=== PATIENT | female | born 1955 | race Hispanic/Latino ===

== ENCOUNTER → 2017-09-07 | Outpatient (CLI) | payer OTHER | LOC: MAMMO 14:56 | PROVIDERS: ATTEND Internal Medicine | DX: Z12.31 Encounter for screening mammogram for malignant neoplasm of breast (principal) | CPT/HCPCS: 77067 ==

== ENCOUNTER 2018-05-12 17:33 | Emergency (ER) | payer OTHER ==
[~2018-05-12] VITALS: Ht 162.6 cm; Wt 72.6 kg
--- OUTSIDE RECORDS SUMMARY | 2018-05-12 17:36 | XMS REPORT ---
Author Author [facility] Address Unknown Phone Unavailable Care Team Providers Care Microelectronics Engineer Name Role Phone Srikanth YANEZ Unavailable Unavailable Problems This patient has no known problems. Allergies, Adverse Reactions, Alerts This patient has no known allergies or adverse reactions. Medications This patient has no known medications. Results Test Description Test Time Test Comments Text Results Atomic Results Result Comments MAMMOGRAPHY DIGITAL SCR BILAT 2017-09-07 15:36:00 [place] [address] Patient Name: SUSAN GODWIN MR #: [id number] : 1955 Age/Sex: 61/F Req #: [id number] [facility] Physician: Ordered by: SIDDHARTHA YANEZ MD Report #: [id number] Location: MAMMO Room/Bed: Procedure: [id number] MG/MAMMOGRAPHY DIGITAL SCR BILAT Exam Date: 09/07/17 Exam Time: 1520 REPORT STATUS: Signed #[id number] - [id number] #BILATERAL DIGITAL SCREENING MAMMOGRAM WITH CAD: 09/07/2017 CLINICAL: Routine screening. Comparison is made to exam dated: 06/21/2016 mammogram - [facility]. Current study contains 4 films. There are scattered fibroglandular elements in both breasts. Current study was also evaluated with a Computer Aided Detection (CAD) system. There are benign vascular calcifications and calcifications in both breasts. There is a mole marker on the right breast. No significant masses, calcifications, or other findings are seen in either breast. There has been no significant interval change. IMPRESSION: BENIGN There is no mammographic evidence of malignancy. A 1 year screening mammogram is recommended. The patient will be notified by dalia shearer of the results. Eun arce/fabby:09/19/2017 09:01:49 Biofuels Processing Technician: Jacinta BARRAGAN(R)(Srikanth), [facility] letter sent: Compared to Prior B9 Mammogram BI-RADS: 2 Benign Dictated By: EUN HOLLOWAY DO 0 Transcribed By: FABBY on 09/19/17900 COPY TO: SIDDHARTHA YANEZ MD
[2018-05-12] MEDS ORDERED: CLONIDINE HCL 0.2 MG TAB PO NR (18:00)
== END 2018-05-12 19:09 | disposition home or self-care (01) ==
LOC: FSED 17:33
DX: R42 Dizziness and giddiness (principal); I10 Essential (primary) hypertension; E78.5 Hyperlipidemia, unspecified
CPT/HCPCS: 99283

== ENCOUNTER 2018-05-14 00:16 | Emergency (ER) | payer OTHER ==
[~2018-05-14] VITALS: Ht 162.6 cm; Wt 72.6 kg
[2018-05-14] MEDS ORDERED: AMLODIPINE BESY10 MG PO (02:37)
[2018-05-14] MEDS ORDERED: HYDROCHLOROTHIA25 MG PO (02:39)
[2018-05-14] MEDS ORDERED: AMOXICILLIN500 MG PO (03:11)
== END 2018-05-14 03:30 | disposition home or self-care (01) ==
LOC: FSED 00:16
DX: I10 Essential (primary) hypertension (principal); H65.01 Acute serous otitis media, right ear; H61.21 Impacted cerumen, right ear; E03.9 Hypothyroidism, unspecified
CPT/HCPCS: 99283